=== PATIENT | male | born 1965 | race Caucasian/White ===

== ENCOUNTER 2016-12-05 05:17 | Day surgery (SDC) | payer MEDICARE ==
[~2016-12-05] VITALS: Ht 180.3 cm; Wt 88.5 kg
[~2016-12-05 05:17] MED LIST: CELEBREX200 MG PO
[2016-12-05] MEDS ORDERED: ULTRAM50 MG PO (09:47)
[2016-12-05] MEDS ORDERED: TYLENOL W/CODEI1 TAB PO (09:47)
[2016-12-05 09:54] VITALS: BP 124/81; Ht 180.3 cm; Wt 88.5 kg
--- NOTE | 2016-12-15 12:12 | OP ---
PATIENT NAME: JAMES NGUYEN MEDICAL RECORD: [id number] :65 LOCATION:[facility] ADMISSION DATE: SURGEON: AYALA RALPH MD DATE OF OPERATION: 12/05/2016 PREOPERATIVE DIAGNOSIS: Left hip degenerative joint disease. POSTOPERATIVE DIAGNOSIS: Left hip degenerative joint disease. PROCEDURE PERFORMED: Left hip injection under fluoroscopy. SURGEON: Tera Ralph MD. ANESTHESIA: TIVA. CONDITION: He tolerated the procedure well and was transferred to the recovery room in stable condition. INDICATIONS: This is a 51-year-old gentleman, very pleasant too, has a worsening left hip degenerative joint disease. He is not quite ready for hip replacement. He wanted to try ____ by some time with an injection. We discussed risks, benefits, and alternatives. He understood and wished to proceed. OPERATIVE REPORT: The patient was taken to the operating room and placed in supine position. TIVA anesthesia was obtained. His left hip was confirmed to be the correct hip. Following which, he was prepped and draped in a normal fashion. After this was accomplished, the left hip was injected under fluoroscopy using IVP dye. Once the dye was in position, I then injected him with 2 cc of Kenalog, 2 cc of Marcaine plain. He tolerated this well, was awakened, was transferred to the recovery room in stable condition at termination of procedure. We will see him back in the office in about 2-3 weeks. TRANSINT:[id number] Voice Confirmation ID: [id number] DOCUMENT ID: [id number] AYALA RALPH MD at 1212 CC: [id number] DICTATION DATE: 12/05/16 1303 ROCKET ENGINE TESTER: 12/05/[address] [facility] 12/05/16 [place] [id number] [place] [id number]
== END 2016-12-05 13:42 | disposition home or self-care (01) ==
LOC: D.OPS 05:17 → D.PAN 13:15 → D.OPS 13:15
DX: M16.12 Unilateral primary osteoarthritis, left hip (principal)

== ENCOUNTER → 2017-06-25 11:44 | Outpatient (CLI) | payer MEDICARE ==
[2016-12-05 09:54] VITALS: BMI 27.2
[~2017-06-25 11:44] MED LIST changes: +TYLENOL W/CODEI1 TAB PO; +ULTRAM50 MG PO
== END | disposition home or self-care (01) ==
LOC: D.OPS 11:44 → D.RAD 13:00 → D.OPS 13:00
DX: M16.12 Unilateral primary osteoarthritis, left hip (principal)

== ENCOUNTER → 2017-09-28 10:10 | Outpatient (CLI) | payer MEDICARE ==
[2016-12-05 09:54] VITALS: BMI 27.2
== END | disposition home or self-care (01) ==
LOC: D.OPS 10:10 → D.SP 11:00
DX: M16.12 Unilateral primary osteoarthritis, left hip (principal); Z01.812 Encounter for preprocedural laboratory examination; Z53.9 Procedure and treatment not carried out, unspecified reason

== ENCOUNTER → 2018-01-15 09:05 | Outpatient (CLI) | payer MEDICARE ==
[2016-12-05 09:54] VITALS: BMI 27.2
== END | disposition home or self-care (01) ==
LOC: D.SP 09:05 → D.RAD 10:00
DX: M16.12 Unilateral primary osteoarthritis, left hip (principal)

== ENCOUNTER → 2018-04-05 08:13 | Outpatient (CLI) | payer MEDICARE ==
[2016-12-05 09:54] VITALS: BMI 27.2
--- NOTE | ~2018-04-05 | HEMODYNAMI ---
PATIENT:JAMES NGUYEN MEDICAL RECORD: [id number] : 65 LOCATION:[facility] ADMISSION DATE: 04/05/18 Generatedon:04/05/20189:47 Patient name: JAMES NGUYEN Patient #: [id number] SSN: : 1965 Date of study: 04/05/2018 Page: Of Hemodynamic Procedure Report Patient Data Patient Demographics Procedure consent was obtained First Name: JAMES Gender: Male Last Name: PATRICK : 1965 Patient #: [id number] Age: 53 year(s) Race: Unknown Additional ID: [id number] Contact details [address]: [address] [place] [address] [address] State: [place] City: [place] Zip code: [address] Admission Admission Data Admission Date: 04/05/2018 Admission Time: 8:13 Procedure Procedure Types Cath Procedure Peripheral Cath Diagnostic Procedure Miscellaneous Procedure Description Procedure Date Procedure Date: 04/05/2018 Procedure Start Time: 9:26 Procedure Staff Name Function Judd Escobar MD Performing Physician Abbie Frank RT Monitor Hemodynamics Rest Pre Cath Intra NCS Post Cath Procedure Log Time Note 9:12:18 Abbie Frank RT (R) (CV) sent for patient. Start room use. 9:13:00 PROCEDURE EXPLAINED TO PT.PT.STATES NO ALLERGIES NO BLOOD THINNERS 9:13:15 Pre-procedure instructions explained to patient. 9:13:17 Pre-op teaching completed and patient verbalized understanding. 9:13:36 Is the patient allergic to Iodine/contrast media? No. 9:13:51 Correct patient and procedure confirmed by team. 9:13:54 Signed procedure consent form obtained from patient. 9:25:07 Physician arrived 9:25:08 --------ALL STOP TIME OUT------ 9:25:09 Final Timeout: patient, procedure, and site verified with staff and physician. All members of the team are in agreement. 9:25:13 Left groin site verified by team. 9:25:24 Sedation plan: Local Anesthetic Medication:Lidocaine 9:26:40 Procedure started. 9:26:49 Local anesthetic to left femerol artery with Lidocaine 1% by Judd Escobar MD.INITIAL ACCESS ONLY 9:37:50 Procedure ended.(Physican Out) 9:39:45 BANDAIDE APPLIED TO LT.GROIN 9:39:45 PT. GIVEN POST INSTRUCTIONS VERBALLY JS WAIT IN WATING ROOM FOR 30 MINS PER IF OK WILL BE SENT HOME 9:41:41 Full Disclosure recording started 9:44:19 Full Disclosure recording stopped Signature Audit Arvin Stage Time Signature Unsigned Intra-Procedure 04/05/2018 Abbie Frank RT 9:44:13 AM Zac RT (R) (CV) 04/05/2018 (R) (CV) 9:46:37 AM Intra-Procedure 04/05/2018 Abbie 9:47:27 AM Zac RT (R) (CV) Signatures Monitor : Abbie Signature : Zac RT Date : Time : [facility] [address] [place] [address]
[~2018-04-05 08:13] MED LIST changes: +NORCO 7.5/325 T1 TA1 PO
== END | disposition home or self-care (01) ==
LOC: D.SP 08:13
DX: M16.12 Unilateral primary osteoarthritis, left hip (principal)

== ENCOUNTER → 2018-05-23 10:02 | Outpatient (CLI) | payer MEDICARE ==
[2016-12-05 09:54] VITALS: BMI 27.2
[~2018-05-23 10:02] MED LIST changes: -NORCO 7.5/325 T1 TA1 PO
== END | disposition home or self-care (01) ==
LOC: D.LABREF 10:02
DX: M16.12 Unilateral primary osteoarthritis, left hip (principal); Z11.8 Encounter for screening for other infectious and parasitic diseases

== ENCOUNTER 2018-06-12 10:00 | Inpatient (IN) | payer MEDICARE ==
[~2018-06-12] VITALS: Ht 180.3 cm; Wt 85.9 kg
--- NOTE | ~2018-06-12 | OP ---
PATIENT NAME: JAMES NGUYEN MEDICAL RECORD: [id number] :65 LOCATION:[id number] ADMISSION DATE:06/18/18 SURGEON: ERLIN ASENCIO DO DATE OF OPERATION: 06/18/2018 PROCEDURE PERFORMED: Left total hip arthroplasty. PREOPERATIVE DIAGNOSIS: Severe end-stage left hip osteoarthritis. POSTOPERATIVE DIAGNOSIS: Severe end-stage left hip osteoarthritis. INDICATIONS: Mr. Nguyen is a 53-year-old male who has had severe left hip arthritis for some years. He has been trying intraarticular injections until the last year, which gave some relief but not much. He said he was tired of it waking him up at night and tiring down with the pain. He wanted a total hip done. I informed him of risks and benefits of the procedure including infection, bleeding, damage to nerve or vessel, need for further surgery, fracture, blood clots, and even . He was okay with those risks and consented to the procedure. SURGEON: Erlin Asencio DO DESCRIPTION OF THE PROCEDURE: The patient was taken to the operative suite, laid in supine position, given general anesthetic, given Ancef and gentamicin for antibiotics. The left hip was prepped and draped in sterile fashion. A time-out was performed and everyone was in agreement with correct side, site, patient, and procedure. Incision then began over the tensor fascia sharon muscle belly down to the fascia itself and this was incised. Fascia was taken anteriorly and muscle belly posteriorly. The interval between the rectus was then opened and the rectus was taken medially and the tensor fascia sharon laterally. The vessels of the ascending branch of the lateral femoral circumflex were coagulated with the Aquamantys and tied and then divided. No bleeding was seen at that time. I then dissected down to the capsule. Hohmanns were placed on either side of femoral neck. A capsulotomy was then performed. The capsule was tagged. It was very thick and somewhat tattered and torn due to the severity of the arthritis. The femoral head was then exposed and the neck. The neck cut was made. The head was somewhat difficult to remove with all the osteophytes and essentially had fused to the pelvis. This was removed and then the acetabulum was exposed. The labrum was removed, and the ligamentum teres and pulvinar were also removed. All bleeding was coagulated at that time with Aquamantys. We then began reaming by first medializing and then up to 52. A 52 cup was then placed and liner was placed. The femur was then exposed. Once the femur was exposed, a #7 stem was put down and then x-ray was taken. We saw we needed to take more neck and were not quite lateral enough. This was then removed and neck cut was recut. Upon recutting the neck, large loose bodies of bone were encountered, which were seen on the x-ray and these were removed as well. Then, the canal was entered again. The Allovue cutter was used to get more lateral on the femur and then broaching then went up to 10. The 10 fit very well and I decided to put a 10 stem down the neck. The hip was then reduced and seemed to be somewhat short with a -3, I went to a standard after putting 10 stem down and seemed slightly short. We put a +3 neck on and this seemed to be close to the other's size as far as length. We thought we can try a 6. The 6 was attempted but could not be reduced. The pubofemoral ligament and the posterior capsule were released, but still could not reduce the +6. The +3 was put in. X-rays were taken and seemed to have a good fit and close to OPERATIVE REPORT [id number] JAMES NGUYEN same length of the right side. This was then thoroughly irrigated. The capsule was not closed on the left due to the contracture. Vanc and Surgicel powder were put in deep. The tensor fascia sharon fascia was then closed with #1 Vicryl, first in [id number] and then a running-locking stitch. Then, this layer was irrigated and vanc and Surgicel were placed on it. The skin was then closed with 2-0 Vicryl in inverted interrupted fashion and 4-0 Monocryl was run on the skin. Then, Prineo glue was placed on the skin. Telfa and Tegaderm were placed on the skin. Blood loss was approximately 400 mL. There was a lot irrigation done as well with vanc and irrigation. Once it was closed, the patient was awakened and taken to recovery in stable condition. COMPLICATIONS: None. BLOOD LOSS: 400 mL. TRANSINT:[id number] Voice Confirmation ID: [id number] DOCUMENT ID: [id number] ERLIN ASENCIO DO at 0642 CC: [id number] DICTATION DATE: 06/18/18 1534 WIND TUNNEL MECHANIC: 06/18/18 1722 ADM IN [facility] [address] [place] [id number]
[~2018-06-12 10:00] MED LIST changes: +NORCO 7.5/325 T1 TA1 PO
[2018-06-12 11:05] LABS: BASOPHILS 0.5 % (0-2); EOSINOPHILS 4.8 % (0-7); HEMATOCRIT 41.1 % (42.0-54.0); IMMATURE GRANULOCYTES 0.2 % (0-5); LYMPHOCYTES 34.2 % (15-50); MCH 28.9 pg (26.0-34.0); MCHC 34.1 g/dL (31.0-37.0); MCV 84.7 fL (80.0-100.0); MEAN PLATELET VOLUME 10.2 fL (7.4-10.4); MONOCYTES 8.2 % (2-11); NEUTROPHILS 52.1 % (40-80); PLATELET COUNT 187 10x3/uL (130-400); RBC 4.85 10x6/uL (4.20-6.10); RDW 13.1 % (11.5-14.5); WBC 4.4 10x3/uL (4.8-10.8)
[2018-06-12 11:13] LABS: APTT 32.7 SECONDS (22.8-39.4); CALC OSMOLALITY 280 mosm/kg (275-300); CALCIUM 8.8 mg/dL (8.5-10.1); CARBON DIOXIDE 32.4 mmol/L (21.0-32.0); CHLORIDE - SERUM 104 mmol/L (98-107); GLUCOSE 93 mg/dL (74-106); INR 1.04 (0.85-1.17); PROTIME 13.2 SECONDS (11.6-15.0); SODIUM 140 mmol/L (136-145); UREA NITROGEN 19 mg/dL (7-18); eGFR NON AFRICAN AMERICAN 83 mL/min (90-120)
[2018-06-12 11:23] LABS: APPEARANCE CLEAR (CLEAR); BILIRUBIN NEGATIVE (NEGATIVE); COLOR YELLOW (YELLOW); GLUCOSE NEGATIVE (NEGATIVE); KETONE NEGATIVE (NEGATIVE); NITRITE NEGATIVE (NEGATIVE); PROTEIN NEGATIVE (NEGATIVE); UROBILINOGEN NORMAL (NORMAL)
[2018-06-18 09:39] VITALS: BP 136/94; BMI 26.4
[2018-06-18 16:14] VITALS: BP 122/79
[2018-06-18 17:54] VITALS: BP 122/79; Ht 180.3 cm; Wt 85.9 kg
[2018-06-18 21:00] VITALS: BP 97/62
[2018-06-19 05:39] VITALS: BP 125/66
[2018-06-19 05:57] LABS: HEMATOCRIT 33.2 % (42.0-54.0); HEMOGLOBIN 11.1 g/dL (13.5-17.5); MCH 28.6 pg (26.0-34.0); MCHC 33.4 g/dL (31.0-37.0); MCV 85.6 fL (80.0-100.0); MEAN PLATELET VOLUME 10.6 fL (7.4-10.4); RBC 3.88 10x6/uL (4.20-6.10); RDW 13.2 % (11.5-14.5); WBC 9.3 10x3/uL (4.8-10.8)
[2018-06-19 09:44] VITALS: BP 100/55
[2018-06-19 17:42] VITALS: BP 107/51
[2018-06-19 20:55] VITALS: BP 128/71
[2018-06-20 05:35] VITALS: BP 129/70
[2018-06-20 06:33] LABS: HEMATOCRIT 33.8 % (42.0-54.0); HEMOGLOBIN 11.4 g/dL (13.5-17.5); MCH 28.7 pg (26.0-34.0); MCHC 33.7 g/dL (31.0-37.0); MCV 85.1 fL (80.0-100.0); MEAN PLATELET VOLUME 10.5 fL (7.4-10.4); RBC 3.97 10x6/uL (4.20-6.10); RDW 13.2 % (11.5-14.5); WBC 7.7 10x3/uL (4.8-10.8)
[2018-06-20] MEDS ORDERED: KEFLEX500 MG PO (08:09)
[2018-06-20] MEDS ORDERED: ELIQUIS2.5 MG PO (08:09)
[2018-06-20] MEDS ORDERED: VISTARIL50 MG PO (08:10)
[2018-06-20] MEDS ORDERED: OXYCODONE HCL5 M1 PO (08:10)
[2018-06-20 08:30] VITALS: BP 132/71
[2018-06-20 09:33] VITALS: BP 132/71
[2018-06-20 14:17] VITALS: BP 122/65
== END 2018-06-20 15:33 | disposition home or self-care (01) | DRG 470 ==
LOC: D.MS 06-18 08:45 → D.SDCHOLD 06-18 08:45 → D.MS 06-18 16:14
PROVIDERS: Orthopaedic Surgery
PROC: 0SRB0JZ Replacement of Left Hip Joint with Synthetic Substitute, Open Approach (ICD-10-PCS; principal; 2018-06-18 10:45)
DX: M16.12 Unilateral primary osteoarthritis, left hip (principal); M25.752 Osteophyte, left hip; Z87.891 Personal history of nicotine dependence